=== PATIENT | male | born 1955 | race Caucasian/White ===

== ENCOUNTER → 2017-01-17 | Outpatient (CLI) | payer OTHER ==
[~2017-01-17] MED LIST: ASPI81TA85 PO; ATOR1TAB19 PO; CALC500T21 PO; FISH1000 PO; FLUT0.003 EX; FLUT1LOT EX; FLUTISP; LOSA50TA20 PO; LYSI1000 PO; MELO7.5T6 PO; META0.52 PO; MULT1TAB10 PO; TYLE325T5 PO; vit D3 PO
[2017-01-17 11:42] LABS: INR 0.92
[2017-01-17 11:48] LABS: MEAN CORPUSCULAR HEMOGLOBIN 31.9 pg (27.0-33.0); MEAN CORPUSCULAR HGB CONC 33.3 g/dl (32.0-36.5); MEAN CORPUSCULAR VOLUME 95.8 fl (80.0-96.0); RED CELL DISTRIBUTION WIDTH 12.2 % (11.5-14.5); WHITE BLOOD COUNT 7.7 K/mm3 (4.0-10.0)
[2017-01-17 12:19] LABS: ALBUMIN 4.1 GM/DL (3.2-5.2); ALBUMIN/GLOBULIN RATIO 1.64 (1.00-1.93); ALKALINE PHOSPHATASE 85 U/L (45-117); ALT/SGPT 49 U/L (12-78); ANION GAP 8 MEQ/L (8-16); AST/SGOT 38 U/L (15-37); BILIRUBIN,TOTAL 0.5 MG/DL (0.2-1.0); BLOOD UREA NITROGEN 12 MG/DL (7-18); CALCIUM LEVEL 8.7 MG/DL (8.8-10.2); CARBON DIOXIDE LEVEL 28 MEQ/L (21-32); CHLORIDE LEVEL 105 MEQ/L (98-107); CREATININE FOR GFR 0.88 MG/DL (0.70-1.30); GLOMERULAR FILTRATION RATE > 60.0 (>49); GLUCOSE, FASTING 100 MG/DL (80-110); SODIUM LEVEL 141 MEQ/L (136-145); TOTAL PROTEIN 6.6 GM/DL (6.4-8.2)
--- NOTE | 2017-01-17 12:29 | REP ---
Clinical: hypertension . Comparison: 11/09/2008 . Technique: PA and lateral. Findings: The mediastinum and cardiac silhouette are normal. The lung howell are clear and without acute consolidation, effusion, or pneumothorax. The skeletal structures are intact and normal. Impression: 1. No acute cardiopulmonary process. Signed by Willis Andrea MD 01/17/2017 12:20 P
--- NOTE | 2017-01-18 21:56 | ECGEPIP ---
Stationary ECG Study [facility] Test Date: 2017-01-17 Pat Name: SOBIA LUNDBERG Department: Room: - Gender: M Hospital Carrier: OZZY : 1955 Requested By: Con Maradiaga Order Number: [id number] Reading MD: Tricia Loera Measurements Intervals [place] Rate: 90 P: 19 DC: 179 QRS: -5 QRSD: 102 T: -13 QT: 353 QTc: 433 Interpretive Statements SINUS RHYTHM MODERATE VOLTAGE CRITERIA FOR LVH, CONSIDER NORMAL VARIANT INFERIOR MYOCARDIAL INFARCTION, OF INDETERMINATE AGE, CANNOT R/O Electronically Signed On 01-18-2017 21:55:43 EDT by Tricia Loera
== END ==
LOC: M ADMPAT 09:26
PROVIDERS: ATTEND Orthopaedic Surgery
DX: Z01.818 Encounter for other preprocedural examination (principal); M17.12 Unilateral primary osteoarthritis, left knee

== ENCOUNTER 2017-01-30 10:06 | Inpatient (IN) | payer OTHER ==
[2017-01-17 10:07] VITALS: BP 154/84
--- NOTE | 2017-01-24 13:44 | HPE ---
DATE OF ADMISSION: 01/30/2017 HISTORY OF PRESENT ILLNESS: This is a pleasant male with continuing symptomatic left knee osteoarthritis. He has consented for left total knee arthroplasty per Dr. Hiren Brown. Medical optimization achieved per Dr. Garcia. ALLERGIES: 1. JEAN MARIE INHIBITOR. CURRENT MEDICATION LIST: Includes: - lysine 1000 mg tablet one capsule by mouth daily - multivitamin over the counter tablet one tablet by mouth daily - calcium plus D 600-200 mg unit tablet one tablet by mouth once a day - vitamin D 2000 unit tablet one tablet by mouth daily - fish oil 1000 mg capsule, one capsule by mouth daily - aspirin 81 over the counter tablet delayed release one tablet by mouth once a day - fluticasone propionate 50 mcg/ACT suspension spray one spray in each nostril once daily - Mobic 7.5 mg tablet take one to two tablets by mouth once daily as needed - atorvastatin calcium 10 mg tablet take one tablet by mouth every day - losartan potassium 50 mg tablet take one tablet by mouth every day MEDICAL PROBLEM LIST: Includes: Bilateral knee osteoarthritis. Hypercholesteremia. Hypertension/LVH per EKG. Prediabetes. Metabolic syndrome. Allergies. Rosacea. Colon polyp adenomatous 08/2003, 07/2006 hyperplastic, 09/2009 none, 2014 diverticulosis. PAST SURGICAL HISTORY: Positive for colonoscopy 09/2009, 11/2014. Right inguinal hernia repair as a child. He had lens implants bilaterally. SOCIAL HISTORY: He is a nonsmoker. Just a weekend intermittent intake of alcohol, which is not regular or excessive. Denies illicit drugs. FAMILY HISTORY: Positive for lung cancer, asbestosis, hypertension, cancer, diabetes. REVIEW OF SYSTEMS: Denies chest pain, shortness of breath, dyspnea on exertion, fever, chills, malaise, upper respiratory or urinary tract symptoms. PHYSICAL EXAMINATION: Height 5 feet 8 inches, weight 200, temperature 97, blood pressure 150/90, pulse 80, respirations 12. He is a well-developed, well-nourished white male in no acute distress, alert and orientated times three. Mood and affect are appropriate. He ambulates with some favoring of the right lower extremity. No gross antalgia. Left knee varus osteoarthritic alignment with positive medial joint line tenderness to palpation, crepitance about the knee through flexion and extension, which is 0 past 90, otherwise stable at the collateral ligaments, patellar, and quad tendons without palpable defects. No popliteal fossa mass or pain. PFJ is congruent, static and dynamic. Left hip range of motion is not irritable or limited to internal and external range of motion. Bowel sounds times four. Soft, nontender. Chest rises symmetrically. Lungs clear to auscultation. Neck supple. Negative jugular venous distention (JVD) or bruits. Normocephalic. Labs were reviewed. Blood urine 1+, RBC urine auto 5. Calcium level was 8.7, AST/SGOT 38, RBC 4.25, hemoglobin 13.6, hematocrit 40.7. Urine culture no growth. Nasal and sinus culture normal mary. Chest x-ray no acute cardiopulmonary disease. EKG showed moderate voltage criteria for LVH, consider normal variant inferior myocardial infarction of intermediate age as read by Dr. Loera. IMPRESSION: 1. Symptomatic left knee osteoarthritis. 2. Patient consented for left total knee arthroplasty per Dr. Hiren Brown. 3. Medical optimization per Dr. Garcia. 4. On-call to operating room (OR) 2 grams IV Kefzol in OR. 5. Sequential compression devices (SCD) and thromboembolic deterrent stockings (TEDS) in OR. MTDD
[~2017-01-30] VITALS: Ht 175.3 cm; Wt 91.0 kg
[2017-01-30] MEDS ORDERED: ACETAMINOPHEN 500 MG TAB PO ONE (10:15)
[2017-01-30] MEDS ORDERED: LR 1,000 ML IV SCH ×4 (10:15→14:45)
[2017-01-30] MEDS ORDERED: TRANEXAMIC ACID 100 MG/ML 10ML VIAL As Ordered ONE (10:17)
[2017-01-30] MEDS ORDERED: ROPIvacaine 0.5% 30 ML INJECTION (J2795) As Ordered ONE (10:17)
[2017-01-30] MEDS ORDERED: BUPIVACAINE HCL 0.5% 10 ML VIAL As Ordered ONE (10:17)
[2017-01-30] MEDS ORDERED: ceFAZolin 1GM INJ (J0690) As Ordered ONE (10:18)
[2017-01-30] MEDS ORDERED: EPINEPHrine INJ 1 MG/ML 1ML AMP As Ordered ONE (10:18)
[2017-01-30] MEDS ORDERED: PROPOFOL 200 MG/20 ML VIAL As Ordered ONE (10:23)
[2017-01-30] MEDS ORDERED: LIDOCAINE 2% INJ 100 MG/5 ML SDV (FOR ANES.) As Ordered ONE (10:23)
[2017-01-30] MEDS ORDERED: fentaNYL 100 MCG/2 ML INJECTION (J3010) As Ordered ONE ×3 (10:24→12:13)
[2017-01-30] MEDS ORDERED: MIDAZOLAM INJ 2 MG/2 ML VIAL (J2250) As Ordered ONE ×2 (10:24→11:22)
[2017-01-30] MEDS ORDERED: COUM1TAB17 PO (10:41)
[2017-01-30] MEDS: MIDAZOLAM INJ 2 MG/2 ML VIAL (J2250) IV PRN ×2 (11:31→11:34)
[2017-01-30] MEDS: fentaNYL 100 MCG/2 ML INJECTION (J3010) IV PRN ×2 (11:31→11:36)
[2017-01-30] MEDS ORDERED: MORPHINE PCA 1MG/ML 100ML CADD As Ordered ONE (14:15)
--- NOTE | 2017-01-30 14:35 | RO ---
DATE OF PROCEDURE: 01/30/2017 PREPROCEDURE DIAGNOSIS: Left knee degenerative arthritis. POSTPROCEDURE DIAGNOSIS: Left knee degenerative arthritis. PROCEDURE: Left total knee arthroplasty using a size 4 cruciate-retaining femoral component, a size 4 tibial tray with a 15 mm rotating platform polyethylene insert with a 35 mm polyethylene button. All components were cemented. The prosthesis was made by [employer]. It was a PFC knee. SURGEON: Dr. Con Brown REPLENISHER: Mr. Prem Abad ANESTHESIA: Spinal with left femoral nerve block. COMPLICATIONS: None. SPECIMENS: Joint surface. ESTIMATED BLOOD LOSS: Less than 20 mL. DESCRIPTION OF PROCEDURE: Antibiotics were given intravenously preoperatively and successful left femoral nerve block and then spinal anesthetic was induced, tourniquet placed on the left upper thigh and not inflated. Left lower extremity was then prepped and draped in the usual sterile fashion. The limb was elevated, and after appropriate time out, the tourniquet was inflated to 250 mmHg. A longitudinal incision was then made for a medial parapatellar approach to the knee. Bovie cautery was used to coagulate crossing vessels. A subperiosteal dissection around the proximal and medial tibial plateau was performed, patella was everted and the knee flexed. A drill was placed down the center of the femoral canal. Distal femoral cutting block was placed and set at a 5 degree valgus cut, at 10 mm resection level for a left knee. It was pinned into position. The distal femoral cut was then performed. AP sizing jig measured for a size 4. It was pinned in that position. A 3-degree external rotation jig pinned, followed by the 4-in-1 block. The anterior, posterior, chamfer cuts were then performed. We then exposed the proximal tibia, made sure we were parallel to the mechanical axis using the tibial guide, extramedullary device. We referenced off the medial tibial condyle and set the jig at about 4 mm from that position. Secondary check on the lateral side shows that we were about 12, thus I lifted it a bit, about 2 mm such that we were taking 10 mm off the good side. The jig was pinned into position. Secondary check with extramedullary jeronimo confirmed that we appeared to be parallel to the mechanical axis. Proximal tibial osteotomy was then performed. The lamina civil cad tech was placed laterally. We then performed a completion medial meniscectomy and debridement of the posteromedial osteophytes. We then placed the lamina civil cad tech medially and performed a completion lateral meniscectomy and debridement of the posterolateral osteophytes. The spacer blocks were trialed, and then the 10 and the 12.5 were clearly too loose, but the 15 gave him good stability to varus, valgus stress testing, both in flexion and in extension. Thus, I exposed the proximal tibia, sized for a #4 tibial tray, which was then pinned into position followed by the reamer and the broach, then the trial polyethylene and the trial femoral component and then brought the knee into extension, everted the patella and performed a patellar osteotomy, sized for a 35 button. The lug holes were drilled. The patellofemoral tracking with the trial in place was anatomic. I felt that this was the appropriate sized implants to use. We then drilled the lug holes for the femur, removed all of the trial components. My captain's assistant, Mr. Prem Abad, mixed the cement on the back table, as I prepared the bony surfaces for cementing with copious amount of pulsatile irrigant solution. Mr. Abad was also critical to the success of the procedure by helping to manipulate the knee during the procedure, help with appropriate soft tissue retraction, helped him to close the wound and prepare the patient, amongst many other tasks. Once the cement had been mixed and the bony surfaces were thoroughly dried, I cemented the tibial tray, removed the excess cement, placed the polyethylene, then cemented the femoral component, removed the excess cement, brought the knee into extension, cemented the patellar button, held it with a clamp until the cement hardened. As the cement was hardening, I copiously pulsatile lavage irrigated out the knee joint and then placed the tranexamic acid in the knee, then closed the apex of the wound with two #1 PDS sutures, then the medial parapatellar area was closed with a single #1 PDS suture, then we used a running Stratafix to close the capsule. The tourniquet was released. Pain Buster catheter was placed. Subdermal tissues were closed with interrupted #2-0 PDS sutures, skin was closed with heidi, covered by Adaptic dry sterile bulky dressing. He was then transferred to the recovery room in stable condition. There were no intraoperative complications.
[2017-01-30] MEDS ORDERED: ACETAMINOPHEN TAB 650MG DOSE (2X325MG) PO PRN (14:45)
[2017-01-30] MEDS ORDERED: fentaNYL 100 MCG/2 ML INJECTION (J3010) IV PRN (14:45)
[2017-01-30] MEDS ORDERED: NALBUPHINE HCL 10 MG/ML AMP (J2300) IV PRN (14:45)
[2017-01-30] MEDS ORDERED: MORPHINE PCA 1MG/ML 100ML CADD IV PRN (14:45)
[2017-01-30] MEDS ORDERED: ONDANSETRON 4MG/2ML VIAL (J2405) IV PRN ×2 (14:45)
[2017-01-30] MEDS ORDERED: EPIDURAL/PCA KEYS XX PRN (14:45)
[2017-01-30] MEDS ORDERED: PERCOCET 5MG/325MG TAB PO PRN (14:45)
[2017-01-30] MEDS ORDERED: FLEET ENEMA PR PRN (14:45)
[2017-01-30] MEDS ORDERED: diphenhydrAMINE INJ 50MG/ML VIAL (J1200) IV PRN (14:45)
[2017-01-30] MEDS ORDERED: PATIENT IS CURRENTLY ON AN ON-Q PAIN BUSTER PAIN RELIEF SYSTEM XX SCH (14:45)
[2017-01-30] MEDS ORDERED: MORPHINE 2 MG/ML 1ML SYRINGE IV PRN (14:45)
[2017-01-30] MEDS ORDERED: NALOXONE INJ 0.4 MG/1 ML VIAL (J2310) IV PRN (14:45)
[2017-01-30 15:30] VITALS: BP 144/88
[2017-01-30 16:00] VITALS: BP 138/84
--- NOTE | 2017-01-30 16:31 | IPN ---
DATE: 01/30/2017 Michael is seen in the postanesthesia care unit (PACU) after undergoing left total knee replacement. He had preoperative evaluation done in the office. Surgical risk was felt to be acceptable. Cardiac risk low at 0.4%. On postoperative exam, no chest pain, no shortness of breath. PHYSICAL EXAMINATION: Vital signs per flow sheet. Lungs clear. Heart regular rate and rhythm. Abdomen soft, nontender. No neurologic symptoms. IMPRESSION: 1. Hyperlipidemia. Continue atorvastatin 10 mg daily. 2. Hypertension. Hold is losartan 50 mg daily until we see what his postoperative blood pressures are like. 3. Prediabetes. Should not require any attention during this hospitalization. Will follow him postoperatively until his medical issues are deemed stable.
[2017-01-30 17:00] VITALS: BP 130/69
[2017-01-30] MEDS ORDERED: WARFARIN SOD 5 MG TAB PO SCH (17:00)
[2017-01-30 18:00] VITALS: BP 137/73
[2017-01-30 19:00] VITALS: BP 125/78
[2017-01-30] MEDS: ATORVASTATIN 10 MG TAB PO SCH (20:10)
[2017-01-30 22:00] VITALS: BP 139/83
[2017-01-31 02:00] VITALS: BP 123/82
[2017-01-31 06:00] VITALS: BP 141/78
[2017-01-31] MEDS ORDERED: ONDANSETRON 4 MG TAB (S0181) PO PRN (06:45)
[2017-01-31] MEDS ORDERED: PERCOCET 5MG/325MG TAB PO PRN (06:45)
[2017-01-31 07:17] LABS: MEAN CORPUSCULAR HEMOGLOBIN 31.6 pg (27.0-33.0); MEAN CORPUSCULAR HGB CONC 32.7 g/dl (32.0-36.5); MEAN CORPUSCULAR VOLUME 96.7 fl (80.0-96.0); RED CELL DISTRIBUTION WIDTH 12.3 % (11.5-14.5); WHITE BLOOD COUNT 17.2 K/mm3 (4.0-10.0)
[2017-01-31 07:20] LABS: INR 1.05
[2017-01-31 07:48] LABS: ANION GAP 7 MEQ/L (8-16); BLOOD UREA NITROGEN 25 MG/DL (7-18); CALCIUM LEVEL 8.4 MG/DL (8.8-10.2); CARBON DIOXIDE LEVEL 29 MEQ/L (21-32); CHLORIDE LEVEL 102 MEQ/L (98-107); CREATININE FOR GFR 0.83 MG/DL (0.70-1.30); GLOMERULAR FILTRATION RATE > 60.0 (>49); GLUCOSE, FASTING 159 MG/DL (80-110); POTASSIUM SERUM 4.2 MEQ/L (3.5-5.1); SODIUM LEVEL 138 MEQ/L (136-145)
[2017-01-31 10:00] VITALS: BP 144/69
[2017-01-31] MEDS: MOM 30ML SUSPENSION UDC PO SCH (10:30)
[2017-01-31] MEDS: PERCOCET 5MG/325MG TAB PO PRN ×3 (10:30→20:32)
[2017-01-31] MEDS: MIRALAX *UNIT DOSE* 17GM PACKET PO SCH (10:30)
[2017-01-31] MEDS: SENOKOT S TAB PO SCH ×2 (10:30→20:32)
--- NOTE | 2017-01-31 10:36 | IPNPDOC ---
Subjective Date Seen The patient was seen on 01/31/17. Subjective Chief Complaint/HPI The patient is a 62-year-old male admitted with a reason for visit of Left Knee Arthritis. Events since last encounter No complaints. Constitutional: Denies: Chills, Fever Pulmonary: Denies: Cough, Dyspnea Cardiovascular: Denies: Chest Pain, Orthopnea, Palpitations Gastrointestinal: Denies: Abdominal Pain, Constipation, Diarrhea, Nausea, Vomiting Genitourinary: Denies: Dysuria, Frequency Objective Physical Examination General Exam: Positive: Alert, No Acute Distress Chest Exam: Positive: Clear to auscultation, Normal air movement Heart Exam: Positive: Rate Normal, Negative: Murmurs Abdomen Exam: Positive: Normal bowel sounds, Soft, Negative: Tenderness Extremity Exam: Negative: Edema Assessment /Plan Problems (1) Osteoarthritis of left knee Status: Chronic Problem Text: s/p TKA - POD # 1 per ortho (2) HTN (hypertension) Status: Chronic Response to Treatment: Stable Problem Text: Restart Losartan in am if stable (3) Leukocytosis Status: Acute Problem Text: Secondary to surgery, acute phase reactant. Afebrile Monitor trend (4) Hypercholesteremia Status: Chronic Response to Treatment: Stable Plan/VTE VTE Prophylaxis Ordered?: Yes (Coumadin per Ortho) VS, I&O, 24H, Fishbone Vital Signs/I&O Vital Signs Date Time Temp Pulse Resp B/P Pulse Ox O2 Delivery O2 Flow Rate FiO2 01/31/17 06:00 97.6 86 18 141/78 98 Nasal Cannula 2.0 I&O- Last 24 Hours up to 6 AM 01/31/17 06:00 Intake Total 2280 ml Output Total 850 ml Balance 1430 ml Laboratory Data 24H LABS Laboratory Tests 2 01/31/17 06:56: Anion Gap 7L, Blood Urea Nitrogen 25H, Creatinine 0.83, Sodium Level 138, Potassium Level 4.2, Chloride Level 102, Carbon Dioxide Level 29, Calcium Level 8.4L, Glomerular Filtration Rate > 60.0, Prothromb Time International Ratio 1.05 , Prothrombin Time 13.8 CBC/BMP Laboratory Tests 01/31/17 06:56 Calcium Level 8.4 L, Red Blood Count 3.57 L, Mean Corpuscular Volume 96.7 H, Mean Corpuscular Hemoglobin 31.6, Mean Corpuscular Hemoglobin Concent 32.7, Red Cell Distribution Width 12.3 KSENIA OWENS PA-C Jan 31, 2017 10:36
--- NOTE | 2017-01-31 11:36 | REP ---
Left knee two views, post op study: Comparison is 03/24/2008. There is a total knee arthroplasty with the components tightly applied and in satisfactory positions alignment. Skin heidi and a surgical drain are incidentally noted. Signed by Warner Hernandez MD 01/31/2017 11:28 A
[2017-01-31 14:00] VITALS: BP 164/86
[2017-01-31] MEDS ORDERED: WARFARIN SOD 5 MG TAB PO ONE (17:00)
[2017-01-31] MEDS: ATORVASTATIN 10 MG TAB PO SCH (20:32)
[2017-01-31 22:00] VITALS: BP 143/88
[2017-02-01] MEDS: PERCOCET 5MG/325MG TAB PO PRN ×3 (00:47→10:57)
[2017-02-01 06:00] VITALS: BP 137/84
[2017-02-01 06:56] LABS: INR 1.15
[2017-02-01 06:57] LABS: MEAN CORPUSCULAR HEMOGLOBIN 31.6 pg (27.0-33.0); MEAN CORPUSCULAR VOLUME 95.8 fl (80.0-96.0); RED CELL DISTRIBUTION WIDTH 12.6 % (11.5-14.5); WHITE BLOOD COUNT 10.6 K/mm3 (4.0-10.0)
[2017-02-01 07:14] LABS: ANION GAP 5 MEQ/L (8-16); BLOOD UREA NITROGEN 21 MG/DL (7-18); CALCIUM LEVEL 8.1 MG/DL (8.8-10.2); CARBON DIOXIDE LEVEL 31 MEQ/L (21-32); CHLORIDE LEVEL 104 MEQ/L (98-107); CREATININE FOR GFR 0.84 MG/DL (0.70-1.30); GLOMERULAR FILTRATION RATE > 60.0 (>49); GLUCOSE, FASTING 107 MG/DL (80-110); POTASSIUM SERUM 4.5 MEQ/L (3.5-5.1); SODIUM LEVEL 140 MEQ/L (136-145)
[2017-02-01] MEDS ORDERED: FLEET ENEMA PR PRN (07:15)
[2017-02-01] MEDS ORDERED: COUM2.5T11 PO (08:07)
[2017-02-01] MEDS ORDERED: PERC5TAB6 PO ×2 (08:07→09:00)
[2017-02-01] MEDS ORDERED: ENOXAPARIN 40 MG/0.4 ML SYRINGE (J1650) SC ONE (08:15)
[2017-02-01] MEDS: MIRALAX *UNIT DOSE* 17GM PACKET PO SCH (10:54)
[2017-02-01] MEDS: MOM 30ML SUSPENSION UDC PO SCH (10:54)
[2017-02-01] MEDS: SENOKOT S TAB PO SCH (10:54)
[2017-02-01] MEDS ORDERED: dexameTHASONE 10 MG/1 ML VIAL PRES.FREE (J1100) ONE (14:49)
[2017-02-01] MEDS ORDERED: LIDOCAINE 1% MDV 20ML VIAL ONE (14:49)
[2017-02-01] MEDS ORDERED: WARFARIN SOD 7.5 MG TAB PO ONE (17:00)
--- NOTE | 2017-02-08 18:29 | DSES ---
DATE OF ADMISSION: 01/30/2017 DATE OF DISCHARGE: 02/01/2017 ADMITTING DIAGNOSIS: Symptomatic osteoarthritis of the left knee. OTHER DIAGNOSES: 1. Hyperlipidemia. 2. Hypertension. 3. Prediabetes. 4. Metabolic syndrome. 5. Seasonal allergies. 6. Rosacea. 7. Diverticulosis. 8. History of adenomatous and hyperplastic colon polyps. ATTENDING PHYSICIAN: Dr. Brown. HISTORY OF PRESENT ILLNESS: The patient is a 62-year-old male with continuing left knee pain and stiffness. He has failed to improve with conservative measures so he consented for an elective left total knee arthroplasty with Dr. Brown. OPERATION PERFORMED: Left total knee arthroplasty. HOSPITAL COURSE: The patient underwent a left total knee arthroplasty under spinal anesthesia which was uneventful. He was up with physical therapy per their protocol and weightbearing as tolerated on the left lower extremity. The patient was discharged on oral pain medication, and will resume his premedications and diet. He will take Coumadin and use his thromboembolic deterrent stockings for 30 days postoperatively which is to prevent deep venous thrombosis. He will followup in our office in approximately 12-14 days for a wound check and staple removal. He is encouraged to contact our office sooner if there is any increased pain, drainage, bleeding, redness, numbness or tingling in his leg, fever greater than 101 degrees or any other concerns. Please see medical record for additional details. LINDA
== END 2017-02-01 14:50 | disposition home health service (06) | DRG 302 ==
LOC: M OR 10:06 → M MS5PR 15:05
PROVIDERS: ADMIT Orthopaedic Surgery; ATTEND Orthopaedic Surgery
PROC: 0SRD0J9 Replacement of Left Knee Joint with Synthetic Substitute, Cemented, Open Approach (ICD-10-PCS; principal; 2017-01-30 12:00)
DX: M17.12 Unilateral primary osteoarthritis, left knee (principal); E88.81 Metabolic syndrome and other insulin resistance; E78.2 Mixed hyperlipidemia; I10 Essential (primary) hypertension; L71.9 Rosacea, unspecified; E74.9 Disorder of carbohydrate metabolism, unspecified; Z88.8 Allergy status to other drugs, medicaments and biological substances; Z79.82 Long term (current) use of aspirin; Z79.899 Other long term (current) drug therapy

== ENCOUNTER → 2017-02-05 | Outpatient (REF) | payer OTHER ==
[~2017-02-05] MED LIST changes: +COUM1TAB17 PO; +COUM2.5T11 PO; +PERC5TAB6 PO
== END ==
LOC: M SHH 12:39
PROVIDERS: ATTEND Nurse Practitioner Family
DX: Z51.81 Encounter for therapeutic drug level monitoring (principal); Z79.01 Long term (current) use of anticoagulants

== ENCOUNTER → 2017-02-08 | Outpatient (REF) | payer OTHER ==
[2017-02-08 13:28] LABS: INR 1.94
== END ==
LOC: M LAB REF 12:38
PROVIDERS: ATTEND Nurse Practitioner Family
DX: Z51.81 Encounter for therapeutic drug level monitoring (principal); Z79.01 Long term (current) use of anticoagulants

== ENCOUNTER → 2017-02-15 | Outpatient (REF) | payer OTHER ==
[2017-02-15 11:57] LABS: INR 1.56
== END ==
LOC: M SHH 11:32
PROVIDERS: ATTEND Nurse Practitioner Family
DX: Z51.81 Encounter for therapeutic drug level monitoring (principal); Z79.01 Long term (current) use of anticoagulants

== ENCOUNTER → 2017-02-19 | Outpatient (REF) | payer OTHER ==
[2017-02-19 11:55] LABS: INR 1.41
== END ==
LOC: M SHH 11:19
PROVIDERS: ATTEND Nurse Practitioner Family
DX: Z51.81 Encounter for therapeutic drug level monitoring (principal); Z79.01 Long term (current) use of anticoagulants

== ENCOUNTER → 2017-02-22 | Outpatient (REF) | payer OTHER ==
[2017-02-22 13:05] LABS: INR 1.75
== END ==
LOC: M LAB REF 12:39
PROVIDERS: ATTEND Nurse Practitioner Family
DX: Z79.01 Long term (current) use of anticoagulants (principal)

== ENCOUNTER → 2017-02-26 | Outpatient (REF) | payer OTHER ==
[2017-02-26 12:56] LABS: INR 2.2
== END ==
LOC: M SHH 12:11
PROVIDERS: ATTEND Nurse Practitioner Family
DX: Z51.81 Encounter for therapeutic drug level monitoring (principal); Z79.01 Long term (current) use of anticoagulants

== ENCOUNTER → 2017-11-01 | Outpatient (CLI) | payer BC ==
[2017-11-01 07:29] LABS: ALBUMIN 4.2 GM/DL (3.2-5.2); ALKALINE PHOSPHATASE 94 U/L (45-117); ALT/SGPT 60 U/L (12-78); ANION GAP 8 MEQ/L (8-16); AST/SGOT 52 U/L (7-37); BILIRUBIN,TOTAL 0.5 MG/DL (0.2-1.0); BLOOD UREA NITROGEN 18 MG/DL (7-18); CALCIUM LEVEL 9.1 MG/DL (8.8-10.2); CARBON DIOXIDE LEVEL 27 MEQ/L (21-32); CHLORIDE LEVEL 105 MEQ/L (98-107); CHOLESTEROL LEVEL 209 MG/DL (<200); CHOLESTEROL RISK RATIO 2.943 (<5); CREATININE FOR GFR 1.07 MG/DL (0.70-1.30); GLOMERULAR FILTRATION RATE > 60.0 (>49); GLUCOSE, FASTING 114 MG/DL (80-110); HDL CHOLESTEROL 71 MG/DL (>40); LDL CHOLESTEROL 121.8 MG/DL (<100); NON-HDL-C 138 MG/DL; POTASSIUM SERUM 4.1 MEQ/L (3.5-5.1); SODIUM LEVEL 140 MEQ/L (136-145); TRIGLYCERIDES LEVEL 81 MG/DL (<150)
== END ==
LOC: M LAB 06:11
DX: E78.2 Mixed hyperlipidemia (principal)
CPT/HCPCS: 80053

== ENCOUNTER → 2019-04-21 | Outpatient (CLI) | payer MEDICARE ==
[~2019-04-21] MED LIST changes: -COUM2.5T11 PO; +COUM2.5T17 PO; -LOSA50TA20 PO; +LOSA50TA88 PO; -MELO7.5T6 PO; +MELO7.5T7 PO; +PERC5TAB12 PO; -PERC5TAB6 PO
[2019-04-21 07:21] LABS: ALBUMIN 3.7 GM/DL (3.2-5.2); ALT/SGPT 37 U/L (12-78); BILIRUBIN,TOTAL 0.4 MG/DL (0.2-1.0); BLOOD UREA NITROGEN 24 MG/DL (7-18); CALCIUM LEVEL 8.8 MG/DL (8.8-10.2); CARBON DIOXIDE LEVEL 27 MEQ/L (21-32); CHLORIDE LEVEL 107 MEQ/L (98-107); CHOLESTEROL LEVEL 211 MG/DL (<200); CHOLESTEROL RISK RATIO 3.057 (<5); CREATININE FOR GFR 0.87 MG/DL (0.70-1.30); GLOMERULAR FILTRATION RATE > 60.0 (>49); GLUCOSE, FASTING 114 MG/DL (70-100); HDL CHOLESTEROL 69 MG/DL (>40); LDL CHOLESTEROL 128 MG/DL (<100); NON-HDL-C 142 MG/DL; POTASSIUM SERUM 3.9 MEQ/L (3.5-5.1); SODIUM LEVEL 141 MEQ/L (136-145); TOTAL PROTEIN 6.9 GM/DL (6.4-8.2); TRIGLYCERIDES LEVEL 71 MG/DL (<150)
== END ==
LOC: M LAB 06:13
PROVIDERS: ATTEND Family Medicine
DX: E78.2 Mixed hyperlipidemia (principal)

== ENCOUNTER → 2020-08-31 | Outpatient (CLI) | payer MEDICARE ==
[~2020-08-31] MED LIST changes: -ASPI81TA85 PO; +ASPI81TA86 PO
--- NOTE | 2020-09-01 09:55 | REP ---
INDICATION: CHRONIC COUGHING. COMPARISON: Comparison chest x-ray January 17, 2017. TECHNIQUE: Two views.. FINDINGS: The lungs are well inflated and free of infiltrate. The pleural angles are sharp. The heart size is normal. Pulmonary vasculature is not increased. No significant bony abnormality is seen. Thoracic aorta is mildly ectatic and rad rather tortuous. There are degenerative changes in the thoracic spine and in the shoulders. IMPRESSION: No active disease.. <Electronically signed by Cale Foss > 09/01/20 0943
== END ==
LOC: M ADAMS 15:29
PROVIDERS: ATTEND Family Medicine
DX: M51.34 Other intervertebral disc degeneration, thoracic region (principal); R05 Cough

== ENCOUNTER → 2020-10-05 | Outpatient (CLI) | payer SELFPAY | LOC: M LABSMTC 13:27 | PROVIDERS: ATTEND Pediatrics | DX: Z11.59 Encounter for screening for other viral diseases (principal) ==

== ENCOUNTER → 2021-07-06 | Outpatient (CLI) | payer MEDICARE ==
[2021-07-06 07:17] LABS: HEMATOCRIT 39.8 % (42.0-52.0); HEMOGLOBIN 13.2 g/dl (13.5-17.5); MEAN CORPUSCULAR HGB CONC 33.2 g/dl (32.0-36.5); MEAN CORPUSCULAR VOLUME 96.6 fl (80.0-96.0); PLATELET COUNT, AUTOMATED 261 10^3/uL (150-450); RED BLOOD COUNT 4.12 10^6/uL (4.30-6.10); WHITE BLOOD COUNT 6.8 10^3/uL (4.0-10.0)
[2021-07-06 07:48] LABS: ALBUMIN 3.5 GM/DL (3.2-5.2); ALT/SGPT 45 U/L (12-78); BILIRUBIN,TOTAL 0.5 MG/DL (0.2-1.0); BLOOD UREA NITROGEN 18 MG/DL (7-18); CALCIUM LEVEL 8.9 MG/DL (8.8-10.2); CARBON DIOXIDE LEVEL 28 MEQ/L (21-32); CHLORIDE LEVEL 107 MEQ/L (98-107); CHOLESTEROL LEVEL 179 MG/DL (<200); CHOLESTEROL RISK RATIO 3.086 (<5); CREATININE FOR GFR 0.79 MG/DL (0.70-1.30); GLOMERULAR FILTRATION RATE > 60.0 (>49); GLUCOSE, FASTING 99 MG/DL (70-100); HDL CHOLESTEROL 58 MG/DL (>40); LDL CHOLESTEROL 105 MG/DL (<100); NON-HDL-C 121 MG/DL; SODIUM LEVEL 138 MEQ/L (136-145); TOTAL PROTEIN 6.4 GM/DL (6.4-8.2); TRIGLYCERIDES LEVEL 78 MG/DL (<150)
[2021-07-06 10:12] LABS: HEMOGLOBIN A1c 5.9 %
== END ==
LOC: M LAB 06:11
PROVIDERS: ATTEND Family Medicine
DX: E78.2 Mixed hyperlipidemia (principal); R05 Cough; Z12.5 Encounter for screening for malignant neoplasm of prostate; Z79.899 Other long term (current) drug therapy
CPT/HCPCS: 36415; 80053; 80061; 83036; 85027; G0103

== ENCOUNTER → 2022-07-06 | Outpatient (CLI) | payer MEDICARE ==
[~2022-07-06] MED LIST changes: +LOSA50TA28 PO; -LOSA50TA88 PO
[2022-07-06 07:39] LABS: ALT/SGPT 46 U/L (12-78); BILIRUBIN,TOTAL 0.7 MG/DL (0.2-1.0); BLOOD UREA NITROGEN 23 MG/DL (7-18); CALCIUM LEVEL 9.5 MG/DL (8.8-10.2); CARBON DIOXIDE LEVEL 27 MEQ/L (21-32); CHLORIDE LEVEL 107 MEQ/L (98-107); CHOLESTEROL LEVEL 201 MG/DL (<200); CHOLESTEROL RISK RATIO 3.465 (<5); FREE T4 0.81 NG/DL (0.76-1.46); GLOMERULAR FILTRATION RATE > 60.0 (>49); GLUCOSE, FASTING 102 MG/DL (70-100); HDL CHOLESTEROL 58 MG/DL (>40); LDL CHOLESTEROL 127 MG/DL (<100); NON-HDL-C 143 MG/DL; POTASSIUM SERUM 4.7 MEQ/L (3.5-5.1); SODIUM LEVEL 138 MEQ/L (136-145); TOTAL PROTEIN 6.8 GM/DL (6.4-8.2); TRIGLYCERIDES LEVEL 78 MG/DL (<150)
== END ==
LOC: M LAB 06:06
PROVIDERS: ATTEND Family Medicine
DX: Z12.5 Encounter for screening for malignant neoplasm of prostate (principal); E74.9 Disorder of carbohydrate metabolism, unspecified; E78.2 Mixed hyperlipidemia; Z79.899 Other long term (current) drug therapy
CPT/HCPCS: 36415; 80053; 80061; 83036; 84439; 84443; G0103

== ENCOUNTER → 2022-12-04 | Outpatient (CLI) | payer MEDICARE | LOC: M WUC 12:52 | PROVIDERS: ATTEND Family Medicine | DX: I51.7 Cardiomegaly (principal); I70.0 Atherosclerosis of aorta; R05.9 Cough, unspecified ==

== ENCOUNTER → 2023-01-10 | Outpatient (CLI) | payer MEDICARE ==
[2023-01-10 07:07] LABS: ALKALINE PHOSPHATASE 84 U/L (46-116); ALT/SGPT 38 U/L (7.0-40); AST/SGOT 39 U/L (<34); BILIRUBIN,TOTAL 0.8 MG/DL (0.3-1.2); BLOOD UREA NITROGEN 25 MG/DL (9-23); CALCIUM LEVEL 8.8 MG/DL (8.3-10.6); CARBON DIOXIDE LEVEL 27 MMOL/L (20-31); CHLORIDE LEVEL 106 MMOL/L (98-107); CHOLESTEROL LEVEL 180 MG/DL (<200); CHOLESTEROL RISK RATIO 3.28 (<5); CREATININE FOR GFR 0.89 MG/DL (0.70-1.30); GLOMERULAR FILTRATION RATE > 60.0 (>42); GLUCOSE, FASTING 109 MG/DL (74-106); HDL CHOLESTEROL 54.8 MG/DL (>40); LDL CHOLESTEROL 106.6 MG/DL (<100); NON-HDL-C 125.2 MG/DL; POTASSIUM SERUM 4.1 MMOL/L (3.5-5.1); SODIUM LEVEL 140 MMOL/L (136-145); TOTAL PROTEIN 6.5 G/DL (5.7-8.2); TRIGLYCERIDES LEVEL 93 MG/DL (<150)
[2023-01-10 08:18] LABS: HEMOGLOBIN A1c 5.9 % (4.0-6.0)
== END ==
LOC: M LAB 06:00
PROVIDERS: ATTEND Family Medicine
DX: E74.9 Disorder of carbohydrate metabolism, unspecified (principal); I10 Essential (primary) hypertension; E78.2 Mixed hyperlipidemia; Z79.899 Other long term (current) drug therapy

== ENCOUNTER → 2023-07-19 | Outpatient (CLI) | payer MEDICARE ==
[~2023-07-19] MED LIST changes: +FLUT50SP17; -FLUTISP
[2023-07-19 07:11] LABS: HEMATOCRIT 40.2 % (42.0-52.0); HEMOGLOBIN 12.8 g/dl (13.5-17.5); MEAN CORPUSCULAR HEMOGLOBIN 30.9 pg (27.0-33.0); MEAN CORPUSCULAR HGB CONC 31.8 g/dl (32.0-36.5); MEAN CORPUSCULAR VOLUME 97.1 fl (80.0-96.0); PLATELET COUNT, AUTOMATED 245 10^3/uL (150-450); RED BLOOD COUNT 4.14 10^6/uL (4.30-6.10); WHITE BLOOD COUNT 6.9 10^3/uL (4.0-10.0)
[2023-07-19 07:38] LABS: ALBUMIN 3.6 G/DL (3.2-5.2); ALKALINE PHOSPHATASE 75 U/L (46-116); ALT/SGPT 32 U/L (7.0-40); AST/SGOT 34 U/L (<34); BILIRUBIN,TOTAL 0.6 MG/DL (0.3-1.2); BLOOD UREA NITROGEN 23 MG/DL (9-23); CALCIUM LEVEL 8.9 MG/DL (8.3-10.6); CARBON DIOXIDE LEVEL 30 MMOL/L (20-31); CHLORIDE LEVEL 107 MMOL/L (98-107); CHOLESTEROL LEVEL 145 MG/DL (<200); CHOLESTEROL RISK RATIO 2.72 (<5); CREATININE FOR GFR 0.91 MG/DL (0.70-1.30); GLOMERULAR FILTRATION RATE > 60.0 (>42); GLUCOSE, FASTING 100 MG/DL (74-106); HDL CHOLESTEROL 53.2 MG/DL (>40); LDL CHOLESTEROL 83.6 MG/DL (<100); NON-HDL-C 91.8 MG/DL; POTASSIUM SERUM 4.1 MMOL/L (3.5-5.1); SODIUM LEVEL 142 MMOL/L (136-145); TOTAL PROTEIN 5.9 G/DL (5.7-8.2); TRIGLYCERIDES LEVEL 41 MG/DL (<150)
== END ==
LOC: M LAB 06:35
PROVIDERS: ATTEND Family Medicine
DX: E74.9 Disorder of carbohydrate metabolism, unspecified (principal); I10 Essential (primary) hypertension; E78.2 Mixed hyperlipidemia; F43.23 Adjustment disorder with mixed anxiety and depressed mood; Z12.5 Encounter for screening for malignant neoplasm of prostate
CPT/HCPCS: 36415; 80053; 80061; 83036; 85027; G0103

== ENCOUNTER → 2023-09-11 | Outpatient (REF) | payer MEDICARE ==
[2023-09-11 18:13] LABS: FREE T4 0.88 NG/DL (0.89-1.76); THYROID STIMULATING HORMONE 1.734 uIU/ML (0.55-4.78)
[2023-09-13 16:10] LABS: FREE KAPPA LIGHT CHAINS SERUM 12.9 mg/L (3.3-19.4); FREE LAMBDA LIGHT CHAINS SERUM 10.3 mg/L (5.7-26.3); KAPPA/LAMBDA RATIO SERUM 1.25 (0.26-1.65)
== END ==
LOC: M SFHCADAM 15:13
PROVIDERS: ATTEND Family Medicine
DX: R63.4 Abnormal weight loss (principal)

== ENCOUNTER → 2023-09-11 | Outpatient (CLI) | payer MEDICARE | LOC: M ADAMS 15:29 | PROVIDERS: ATTEND Family Medicine | DX: R63.4 Abnormal weight loss (principal) ==

== ENCOUNTER 2023-12-20 09:13 | Day surgery (SDC) | payer MEDICARE ==
[~2023-12-20] VITALS: Ht 175.3 cm; Wt 75.9 kg
[~2023-12-20 09:13] MED LIST changes: +BAYE81TA7 PO; +CALC600C3 PO; -FLUT50SP17; +FLUTISP; +KP F1200 PO; +L-LY500T14 PO; +MELO7.5T35 PO; +VITA200038 PO
[2023-12-20] MEDS: NS 1,000 ML IV ONE (09:53)
[2023-12-20] MEDS ORDERED: LIDOCAINE 2% 100MG/5ML SDV (FOR ANES.) As Ordered ONE (10:22)
[2023-12-20] MEDS ORDERED: propofoL 200 MG/20 ML VIAL As Ordered ONE (10:22)
[2023-12-20 11:00] VITALS: BP 119/74; O2SAT 97
== END 2023-12-20 11:04 | disposition home or self-care (01) ==
LOC: M OPP 09:13
PROVIDERS: ATTEND Surgery
DX: Z12.11 Encounter for screening for malignant neoplasm of colon (principal); Z86.010 Personal history of colon polyps; K57.30 Diverticulosis of large intestine without perforation or abscess without bleeding; I10 Essential (primary) hypertension; Z79.02 Long term (current) use of antithrombotics/antiplatelets; Z79.1 Long term (current) use of non-steroidal anti-inflammatories (NSAID); Z79.82 Long term (current) use of aspirin; Z79.84 Long term (current) use of oral hypoglycemic drugs; Z79.899 Other long term (current) drug therapy

== ENCOUNTER → 2024-01-24 | Outpatient (CLI) | payer MEDICARE | LOC: M ADAMS 09:23 | PROVIDERS: ATTEND Family Medicine | DX: Z96.652 Presence of left artificial knee joint (principal) ==

== ENCOUNTER → 2024-02-27 | Outpatient (CLI) | payer MEDICARE | LOC: M PLAIMG 11:31 | PROVIDERS: ATTEND Orthopaedic Surgery | DX: M21.372 Foot drop, left foot (principal) ==

== ENCOUNTER → 2024-04-21 | Outpatient (CLI) | payer MEDICARE ==
[~2024-04-21] MED LIST changes: +GASTROGRAFIN SOLUTION 30ML ONE
== END ==
LOC: M PLAIMG 11:49
PROVIDERS: ATTEND Family Medicine
DX: R10.32 Left lower quadrant pain (principal); G89.29 Other chronic pain; K44.9 Diaphragmatic hernia without obstruction or gangrene
CPT/HCPCS: 74176; Q9963

== ENCOUNTER → 2024-08-13 | Outpatient (CLI) | payer MEDICARE ==
[~2024-08-13] MED LIST changes: -GASTROGRAFIN SOLUTION 30ML ONE
[2024-08-13 07:27] LABS: HEMATOCRIT 39.7 % (42.0-52.0); MEAN CORPUSCULAR HEMOGLOBIN 31.8 pg (27.0-33.0); MEAN CORPUSCULAR HGB CONC 32.7 g/dl (32.0-36.5); MEAN CORPUSCULAR VOLUME 97.1 fl (80.0-96.0); PLATELET COUNT, AUTOMATED 262 10^3/uL (150-450); RED BLOOD COUNT 4.09 10^6/uL (4.30-6.10); WHITE BLOOD COUNT 6.1 10^3/uL (4.0-10.0)
[2024-08-13 07:49] LABS: ALBUMIN 3.6 G/DL (3.2-5.2); ALKALINE PHOSPHATASE 78 U/L (46-116); ALT/SGPT 28 U/L (7.0-40); AST/SGOT 30 U/L (<34); BILIRUBIN,TOTAL 0.7 MG/DL (0.3-1.2); BLOOD UREA NITROGEN 18 MG/DL (9-23); CALCIUM LEVEL 8.9 MG/DL (8.3-10.6); CARBON DIOXIDE LEVEL 29 MMOL/L (20-31); CHLORIDE LEVEL 109 MMOL/L (98-107); CHOLESTEROL LEVEL 149 MG/DL (<200); CREATININE FOR GFR 0.75 MG/DL (0.70-1.30); GLOMERULAR FILTRATION RATE > 60.0 (>42); GLUCOSE, FASTING 98 MG/DL (74-106); HDL CHOLESTEROL 59.4 MG/DL (>40); LDL CHOLESTEROL 80.8 MG/DL (<100); NON-HDL-C 89.6 MG/DL; POTASSIUM SERUM 3.9 MMOL/L (3.5-5.1); PSA SCREENING 1.89 NG/ML (< 4.00); SODIUM LEVEL 140 MMOL/L (136-145); TOTAL PROTEIN 6.1 G/DL (5.7-8.2); TRIGLYCERIDES LEVEL 44 MG/DL (<150)
[2024-08-13 07:51] LABS: FREE T4 1.01 NG/DL (0.89-1.76); THYROID STIMULATING HORMONE 2.295 uIU/ML (0.55-4.78)
[2024-08-13 08:35] LABS: HEMOGLOBIN A1c 5.4 % (4.0-6.0)
== END ==
LOC: M LAB 06:44
PROVIDERS: ATTEND Family Medicine
DX: E74.9 Disorder of carbohydrate metabolism, unspecified (principal); E78.2 Mixed hyperlipidemia; K57.90 Diverticulosis of intestine, part unspecified, without perforation or abscess without bleeding; Z12.5 Encounter for screening for malignant neoplasm of prostate; Z79.899 Other long term (current) drug therapy
CPT/HCPCS: 36415; 80053; 80061; 83036; 84439; 84443; 85027; G0103

== ENCOUNTER 2024-08-26 06:19 | Day surgery (SDC) | payer MEDICARE ==
[~2024-08-26] VITALS: Ht 175.3 cm; Wt 76.6 kg
[2024-08-26] MEDS ORDERED: NS (Normal Saline) 0.9% 1,000 ML IV SCH (06:45)
[2024-08-26 06:57] LABS: HEMATOCRIT 40.1 % (42.0-52.0); HEMOGLOBIN 13.3 g/dl (13.5-17.5); MEAN CORPUSCULAR HEMOGLOBIN 32.6 pg (27.0-33.0); MEAN CORPUSCULAR HGB CONC 33.2 g/dl (32.0-36.5); MEAN CORPUSCULAR VOLUME 98.3 fl (80.0-96.0); PLATELET COUNT, AUTOMATED 309 10^3/uL (150-450); RED BLOOD COUNT 4.08 10^6/uL (4.30-6.10); WHITE BLOOD COUNT 8.6 10^3/uL (4.0-10.0)
[2024-08-26] MEDS: ceFAZolin SOD 2 GM in IV 1 EA IV ONE (07:35)
[2024-08-26] MEDS ORDERED: MIDAZOLAM INJ 2MG/2ML VIAL As Ordered ONE (08:24)
[2024-08-26] MEDS ORDERED: ACETAMINOPHEN 1000MG/100ML IV BAG As Ordered ONE (08:24)
[2024-08-26] MEDS ORDERED: KETOROLAC 60MG 2ML VIAL As Ordered ONE (08:24)
[2024-08-26] MEDS ORDERED: ePHEDrine SULFATE 25 MG/5 ML(5MG/ML) SYRINGE As Ordered ONE (08:24)
[2024-08-26] MEDS ORDERED: SUGAMMADEX SODIUM 500 MG/5 ML VIAL (BRIDION) As Ordered ONE (08:24)
[2024-08-26] MEDS ORDERED: LIDOCAINE 2% 100MG/5ML SDV (FOR ANES.) As Ordered ONE (08:24)
[2024-08-26] MEDS ORDERED: dexmedeTOMIDine (4MCG/ML)200MCG/50ML BTL (PRECEDEX) As Ordered ONE (08:24)
[2024-08-26] MEDS ORDERED: fentaNYL 250 MCG/5 ML INJECTION As Ordered ONE (08:24)
[2024-08-26] MEDS ORDERED: ROCURONIUM BROMIDE 50MG/5ML VIAL As Ordered ONE (08:24)
[2024-08-26] MEDS ORDERED: METOCLOPRAMIDE INJ 10MG/2ML VIAL As Ordered ONE (08:24)
[2024-08-26] MEDS ORDERED: propofoL 200 MG/20 ML VIAL As Ordered ONE (08:24)
[2024-08-26] MEDS ORDERED: ONDANSETRON 4MG 2ML VIAL As Ordered ONE (08:24)
[2024-08-26] MEDS ORDERED: LACRILUBE (AKWA TEARS) OPHTH OINT 3.5GM As Ordered ONE (08:25)
[2024-08-26] MEDS ORDERED: oxyCODONE 5MG TAB PO PRN (09:05)
[2024-08-26] MEDS ORDERED: METOCLOPRAMIDE INJ 10MG/2ML VIAL IV PRN (09:05)
[2024-08-26] MEDS ORDERED: diphenhydrAMINE 50MG/ML VIAL IV PRN (09:05)
[2024-08-26] MEDS ORDERED: fentaNYL 100 MCG/2 ML INJECTION IV PRN (09:05)
[2024-08-26] MEDS ORDERED: HYDROMORPHONE HCL 0.5 MG/ 0.5 ML SYRINGE IV PRN (09:05)
[2024-08-26] MEDS ORDERED: MEPERIDINE 25 MG/ML 1ML VIAL IV PRN (09:05)
[2024-08-26] MEDS ORDERED: ONDANSETRON 4MG 2ML VIAL IV PRN (09:05)
[2024-08-26 09:56] VITALS: BP 125/70; TEMP 97.3; O2SAT 96
[2024-08-26] MEDS ORDERED: traMADol 50 MG TAB PO PRN (12:25)
== END 2024-08-26 10:25 | disposition home or self-care (01) ==
LOC: M SDC 06:19
PROVIDERS: ATTEND Surgery
DX: K40.90 Unilateral inguinal hernia, without obstruction or gangrene, not specified as recurrent (principal); R06.83 Snoring; Z79.899 Other long term (current) drug therapy
CPT/HCPCS: 36415; 49650; 85027; C1781; J0131; J0665; J0690; J1100; J1885; J2250; J2405; J2765; J3010; S2900

== ENCOUNTER → 2024-09-10 | Outpatient (REF) | payer MEDICARE | LOC: M LAB REF 07:58 | PROVIDERS: ATTEND Surgery | DX: L72.3 Sebaceous cyst (principal) ==

== ENCOUNTER → 2025-08-04 | Outpatient (CLI) | payer MEDICARE ==
[2025-08-04 06:54] LABS: PLATELET COUNT, AUTOMATED 264 10^3/uL (150-450)
[2025-08-04 07:21] LABS: ALT/SGPT 37 U/L (7.0-40); AST/SGOT 52 U/L (<34); CALCIUM LEVEL 8.8 MG/DL (8.3-10.6); CARBON DIOXIDE LEVEL 30 MMOL/L (20-31); CHLORIDE LEVEL 104 MMOL/L (98-107); CHOLESTEROL LEVEL 155 MG/DL (<200); CHOLESTEROL RISK RATIO 2.21 (<5); CREATININE FOR GFR 0.80 MG/DL (0.70-1.30); GLOMERULAR FILTRATION RATE > 90.0 (>42); LDL CHOLESTEROL 77.1 MG/DL (<100); NON-HDL-C 85.1 MG/DL; POTASSIUM SERUM 3.9 MMOL/L (3.5-5.1); PSA SCREENING 2.24 NG/ML (< 4.00); SODIUM LEVEL 142 MMOL/L (136-145); TRIGLYCERIDES LEVEL 40 MG/DL (<150)
[2025-08-04 08:06] LABS: ESTIMATED AVERAGE GLUCOSE 108.0 MG/DL (60-110)
== END ==
LOC: M LAB 06:13
PROVIDERS: ATTEND Family Medicine
DX: K57.90 Diverticulosis of intestine, part unspecified, without perforation or abscess without bleeding (principal); I10 Essential (primary) hypertension; E78.2 Mixed hyperlipidemia; E74.9 Disorder of carbohydrate metabolism, unspecified; Z12.5 Encounter for screening for malignant neoplasm of prostate; Z79.899 Other long term (current) drug therapy
CPT/HCPCS: 36415; 80053; 80061; 83036; 85027; G0103